=== PATIENT | male | born 1965 | race Caucasian/White ===

== ENCOUNTER → 2016-08-03 | Outpatient (CLI) | payer BC ==
[~2016-08-03] MED LIST: BELVIQ10 MG PO; CHERATUSSIN AC473 ML PO; ECOTRIN81 MG PO; LIPITOR80 MG PO; MAALOX DPS30 ML PO; METAMUCIL SF P3.4 GM PO; METOPROLOL TART25 MG PO; MUCINEX600 MG PO; NITROSTAT0.4 MG SL; OCEAN NASAL MIS45 ML NS; OMNICEF DPS300 MG PO; PLAVIX75 MG PO; PRILOSEC DPS20 MG PO; SURFAK DPS240 MG PO; TESSALON PERLE100 M1 PO; THERAPEUTIC MUL1 TAB PO; TYLENOL EXTRA500 M1 PO; WELLBUTRIN SR150 M1 PO; ZETIA10 MG PO; ZOFRAN ODT4 MG PO
--- NOTE | 2016-08-11 14:24 | SS ---
ADMIT: 08/03/2016 RM/LOC: [facility] MR#: [id number] [place], [place] [id number] [facility] [place] [address] Sleep Study SEX: M AGE: 51 : 1965 STUDY DATE: 08/03/2016 REFERRING PHYSICIAN: Oleksandr Figueroa MD CLINICAL HISTORY: A 51-year-old male, body mass of 41.1, 68 inches tall, 271 pounds, with known history of obstructive sleep apnea in the sleep lab for CPAP titration. TECHNICAL DESCRIPTION: CPAP titration performed on night of 08/03/2016, attended by trained nuclear medicine pet ct technologist. TITRATION FINDINGS: TITRATION DESCRIPTION: The patient was titrated from 7 cm CPAP to 17 cm of CPAP. Mirage Quattro large mask was used as interface. SLEEP: Total time in bed is 443 minutes, total sleep time is 367 minutes, sleep efficiency 82.8%. 62.3% time was spent in stage II sleep, 14.1% hours were spent in stage REM. BREATHING: The patient had ongoing obstructive hypopneas throughout CPAP titration. At lower CPAP pressures, there was ongoing obstructive hypopneas seen. At 17 cm, the patient was seen in REM sleep in lateral position with complete resolution of obstructive events. REM supine sleep was not seen. OXYGEN SATURATION: Mean sleeping oxygen saturation at the ending CPAP pressure at 17 cm was around 94% to 95%. CARDIAC: Average heart rate is 66 beats per minute. MOVEMENTS/POSITION: During the study, the patient slept in supine lateral position with no significant leg movements. IMPRESSION AND PLAN: Recommend using CPAP at 17 cm with mask as mentioned above. Recommend losing weight, avoiding sedatives or alcohol, refrain from driving if excessively sleepy, recommend avoiding sleeping in supine position. Clinical correlation needed. CPAP compliance followup is recommended. Of note, REM supine sleep was not seen at this ending pressure of 17 cm. Lazaro Hernandez MD/ flakita JOB #: [id number] CC: Meng Briggs MD, Attending Physician Meng Briggs MD, Family Physician
== END | disposition home or self-care (01) ==
LOC: RESC 20:17
DX: G47.33 Obstructive sleep apnea (adult) (pediatric) (principal)